=== PATIENT | female | born 1930 | race Caucasian/White ===

== ENCOUNTER 2018-05-11 17:03 | Inpatient (IN) | payer MEDICARE, OTHER ==
[~2018-05-11] VITALS: Ht 162.6 cm; Wt 68.2 kg
[2018-05-11] MEDS ORDERED: SODIUM CHLORIDE FLUSH 10ML SYR IVF ONE (18:00)
[2018-05-11] MEDS ORDERED: ASPIRIN 81 MG TABLET CHEW PO ONE (18:00)
[2018-05-11 18:06] LABS: BASOPHILS # (AUTO) 0.04 x10^3/uL (0-0.1); BASOPHILS % (AUTO) 0 % (0-1); EOSINOPHILS # (AUTO) 0.18 x10^3/uL (0-0.4); EOSINOPHILS % (AUTO) 2 % (1-7); LYMPHOCYTES # (AUTO) 1.31 x10^3/uL (1-3.4); LYMPHOCYTES % (AUTO) 11 % (22-44); MD NO; MEAN CORPUSCULAR HEMOGLOBIN 32.6 pg (27.0-34.8); MEAN CORPUSCULAR VOLUME 98.8 fL (80-100); MEAN PLATELET VOLUME 7.4 fL (7.4-10.4); MONOCYTES # (AUTO) 0.66 x10^3/uL (0.2-0.8); MONOCYTES % (AUTO) 6 % (2-9); NEUTROPHILS # (AUTO) 9.51 x10^3/uL (1.8-6.8); NEUTROPHILS % (AUTO) 81 % (42-75); PLATELET COUNT 377 x10^3/uL (130-400); RED BLOOD COUNT 4.24 x10^6/uL (3.82-5.3); RED CELL DISTRIBUTION WIDTH 14.8 % (9.6-15.2)
[2018-05-11 18:11] LABS: INTERNATIONAL NORMALIZED RATIO 1.05 (0.93-1.1); PROTHROMBIN TIME 10.8 Seconds (9.6-11.5)
[2018-05-11 18:14] LABS: ALANINE AMINOTRANSFERASE 23 U/L (12-78); ALBUMIN 3.2 g/dL (3.4-5.0); ANION GAP 8 mmol/L (5-15); CALCIUM 9.2 mg/dL (8.5-10.1); CHLORIDE 107 mmol/L (98-107); CREATININE 0.95 mg/dL (0.55-1.02)
[2018-05-11 18:19] LABS: ALKALINE PHOSPHATASE 73 U/L (45-117); BILIRUBIN,TOTAL 0.5 mg/dL (0.2-1.0); TOTAL PROTEIN 6.9 g/dL (6.4-8.2); TROPONIN I < 0.015 ng/mL (0.000-0.045)
[2018-05-11] MEDS ORDERED: ASPIRIN 81 MG TABLET CHEW ONE (18:42)
[2018-05-11 19:16] LABS: MICROSCOPIC AUTO
[2018-05-11 19:17] LABS: CULTURE INDICATED? NO
[2018-05-11] MEDS ORDERED: LEVO50TA PO (21:33)
[2018-05-11] MEDS ORDERED: CHOL500045 PO (21:33)
[2018-05-11] MEDS ORDERED: ATOR40TA PO (21:33)
[2018-05-11] MEDS ORDERED: BIOT25005 PO (21:33)
[2018-05-11] MEDS ORDERED: LISI-170 PO (21:33)
[2018-05-11] MEDS ORDERED: ASPI-496 PO (21:33)
[2018-05-11] MEDS ORDERED: MAGN300C PO (21:33)
[2018-05-11] MEDS ORDERED: ONDANSETRON ODT 4 MG PO PRN (22:00)
[2018-05-11] MEDS ORDERED: BISACODYL 10 MG SUPP PR PRN (22:00)
[2018-05-11] MEDS: BIOTIN MC SCH (22:30)
[2018-05-11] MEDS: SODIUM CHLORIDE 0.9% 1,000 ML IV SCH (22:49)
[2018-05-11] MEDS: ATORVASTATIN 40 MG TABLET PO SCH (22:49)
[2018-05-11] MEDS: HEPARIN 5,000 UNITS/ML, 1ML SQ SCH (22:50)
[2018-05-12] VITALS (8 sets, daily range): BP systolic 123–152; BP diastolic 61–91
[2018-05-12 00:43] LABS: TROPONIN I < 0.015 ng/mL (0.000-0.045)
[2018-05-12] MEDS: ACETAMINOPHEN 325 MG TABLET PO PRN ×4 (03:08→21:26)
[2018-05-12 06:19] LABS: BASOPHILS # (AUTO) 0.03 x10^3/uL (0-0.1); BASOPHILS % (AUTO) 0 % (0-1); EOSINOPHILS # (AUTO) 0.13 x10^3/uL (0-0.4); EOSINOPHILS % (AUTO) 2 % (1-7); LYMPHOCYTES % (AUTO) 23 % (22-44); MD NO; MEAN CORPUSCULAR HEMOGLOBIN 33.5 pg (27.0-34.8); MEAN CORPUSCULAR VOLUME 98.6 fL (80-100); MEAN PLATELET VOLUME 7.4 fL (7.4-10.4); MONOCYTES % (AUTO) 11 % (2-9); NEUTROPHILS # (AUTO) 4.81 x10^3/uL (1.8-6.8); NEUTROPHILS % (AUTO) 64 % (42-75); PLATELET COUNT 332 x10^3/uL (130-400); RED BLOOD COUNT 3.89 x10^6/uL (3.82-5.3); RED CELL DISTRIBUTION WIDTH 14.8 % (9.6-15.2)
[2018-05-12] MEDS: LEVOTHYROXINE 50 MCG TABLET PO SCH (06:19)
[2018-05-12] MEDS: HEPARIN 5,000 UNITS/ML, 1ML SQ SCH ×3 (06:19→23:17)
[2018-05-12 06:25] LABS: ALANINE AMINOTRANSFERASE 20 U/L (12-78); ALBUMIN 2.8 g/dL (3.4-5.0); ANION GAP 6 mmol/L (5-15); CALCIUM 8.6 mg/dL (8.5-10.1); CHLORIDE 111 mmol/L (98-107); CREATININE 0.88 mg/dL (0.55-1.02)
[2018-05-12 06:29] LABS: ALKALINE PHOSPHATASE 60 U/L (45-117); BILIRUBIN,TOTAL 0.7 mg/dL (0.2-1.0); TOTAL PROTEIN 5.9 g/dL (6.4-8.2); TROPONIN I < 0.015 ng/mL (0.000-0.045)
[2018-05-12] MEDS: BIOTIN MC SCH ×3 (06:30→22:30)
[2018-05-12] MEDS: LISINOPRIL 20 MG TABLET PO SCH (08:35)
[2018-05-12] MEDS: MAGNESIUM OXIDE 400 MG TABLET PO SCH (08:35)
[2018-05-12] MEDS: ASPIRIN 81 MG TABLET CHEW PO SCH (08:35)
[2018-05-12] MEDS: SENNA/DOCUSATE TABLET PO SCH (08:35)
[2018-05-12] MEDS: CHOLECALCIFEROL 5,000u TAB PO SCH (08:35)
[2018-05-12] MEDS ORDERED: TEMPLATE NON-FORMULARY MED. (Biotin** 2,500 MG) PO SCH (09:00)
[2018-05-12] MEDS: LIDODERM 5% PATCH TD SCH (11:42)
[2018-05-12] MEDS: SODIUM CHLORIDE 0.9% 1,000 ML IV SCH ×2 (11:42→23:18)
[2018-05-12] MEDS: POLYETHYLENE GLYCOL 17 GM PACKET PO PRN (17:54)
[2018-05-12] MEDS: ATORVASTATIN 40 MG TABLET PO SCH (21:26)
[2018-05-13] VITALS (10 sets, daily range): BP systolic 116–176; BP diastolic 67–114
[2018-05-13] MEDS: ACETAMINOPHEN 325 MG TABLET PO PRN ×2 (03:06→05:47)
[2018-05-13] MEDS: LEVOTHYROXINE 50 MCG TABLET PO SCH (05:47)
[2018-05-13] MEDS: BIOTIN MC SCH ×3 (06:19→21:39)
[2018-05-13] MEDS: HEPARIN 5,000 UNITS/ML, 1ML SQ SCH ×2 (07:29→16:20)
[2018-05-13] MEDS: ASPIRIN 81 MG TABLET CHEW PO SCH (10:08)
[2018-05-13] MEDS: MAGNESIUM OXIDE 400 MG TABLET PO SCH (10:09)
[2018-05-13] MEDS: LISINOPRIL 20 MG TABLET PO SCH (10:11)
[2018-05-13] MEDS: SENNA/DOCUSATE TABLET PO SCH (10:13)
[2018-05-13] MEDS: CHOLECALCIFEROL 5,000u TAB PO SCH (10:14)
[2018-05-13] MEDS: LIDODERM 5% PATCH TD SCH (10:17)
[2018-05-13 10:32] LABS: BASOPHILS # (AUTO) 0.03 x10^3/uL (0-0.1); BASOPHILS % (AUTO) 0 % (0-1); EOSINOPHILS # (AUTO) 0.07 x10^3/uL (0-0.4); EOSINOPHILS % (AUTO) 1 % (1-7); LYMPHOCYTES # (AUTO) 1.26 x10^3/uL (1-3.4); LYMPHOCYTES % (AUTO) 17 % (22-44); MD NO; MEAN CORPUSCULAR HEMOGLOBIN 33.7 pg (27.0-34.8); MEAN CORPUSCULAR VOLUME 98.9 fL (80-100); MEAN PLATELET VOLUME 7.3 fL (7.4-10.4); MONOCYTES # (AUTO) 0.34 x10^3/uL (0.2-0.8); MONOCYTES % (AUTO) 5 % (2-9); NEUTROPHILS # (AUTO) 5.57 x10^3/uL (1.8-6.8); NEUTROPHILS % (AUTO) 77 % (42-75); PLATELET COUNT 336 x10^3/uL (130-400); RED BLOOD COUNT 4.08 x10^6/uL (3.82-5.3); RED CELL DISTRIBUTION WIDTH 14.9 % (9.6-15.2)
[2018-05-13 10:46] LABS: ALANINE AMINOTRANSFERASE 21 U/L (12-78); ALBUMIN 3.1 g/dL (3.4-5.0); ANION GAP 8 mmol/L (5-15); CHLORIDE 108 mmol/L (98-107); CREATININE 0.78 mg/dL (0.55-1.02)
[2018-05-13 10:48] LABS: ALKALINE PHOSPHATASE 69 U/L (45-117); BILIRUBIN,TOTAL 0.8 mg/dL (0.2-1.0); TOTAL PROTEIN 6.7 g/dL (6.4-8.2)
[2018-05-13] MEDS: ATORVASTATIN 40 MG TABLET PO SCH (19:55)
[2018-05-13] MEDS: POLYETHYLENE GLYCOL 17 GM PACKET PO PRN (19:58)
[2018-05-13 22:54] LABS: FREE T4 (FREE THYROXINE) 1.03 ng/dL (0.76-1.46); THYROID STIMULATING HORMONE 12.1 mIU/L (0.358-3.740)
[2018-05-14 00:45] VITALS: BP 141/76
[2018-05-14] MEDS: HEPARIN 5,000 UNITS/ML, 1ML SQ SCH ×3 (00:59→17:00)
[2018-05-14] MEDS: BIOTIN MC SCH (05:37)
[2018-05-14] MEDS: LEVOTHYROXINE 50 MCG TABLET PO SCH (05:39)
[2018-05-14 06:47] VITALS: BP 131/83
[2018-05-14] MEDS ORDERED: METOPROLOL TARTRATE 25 MG TABLET PO SCH (09:00)
[2018-05-14] MEDS: MAGNESIUM OXIDE 400 MG TABLET PO SCH (09:05)
[2018-05-14] MEDS: SENNA/DOCUSATE TABLET PO SCH (09:05)
[2018-05-14] MEDS: POLYETHYLENE GLYCOL 17 GM PACKET PO PRN (09:06)
[2018-05-14] MEDS: ASPIRIN 325 MG TABLET PO SCH (09:07)
[2018-05-14] MEDS: CHOLECALCIFEROL 5,000u TAB PO SCH (09:09)
[2018-05-14] MEDS: LIDODERM 5% PATCH TD SCH (09:09)
[2018-05-14] MEDS: LISINOPRIL 20 MG TABLET PO SCH (09:09)
[2018-05-14] MEDS ORDERED: METOPROLOL TARTRATE 25 MG TABLET PO ONE (12:30)
[2018-05-14 14:13] VITALS: BP 115/76
[2018-05-14] MEDS: METOPROLOL TARTRATE 25 MG TABLET PO SCH ×2 (15:33→21:27)
[2018-05-14 21:07] VITALS: BP 124/73
[2018-05-14] MEDS: ATORVASTATIN 40 MG TABLET PO SCH (21:27)
[2018-05-15] MEDS: HEPARIN 5,000 UNITS/ML, 1ML SQ SCH ×3 (01:08→18:06)
[2018-05-15] MEDS: METOPROLOL TARTRATE 25 MG TABLET PO SCH ×4 (02:15→21:40)
[2018-05-15] MEDS: ACETAMINOPHEN 325 MG TABLET PO PRN (02:16)
[2018-05-15 02:19] VITALS: BP 140/76
[2018-05-15 05:20] LABS: BASOPHILS # (AUTO) 0.02 x10^3/uL (0-0.1); BASOPHILS % (AUTO) 0 % (0-1); EOSINOPHILS # (AUTO) 0.06 x10^3/uL (0-0.4); EOSINOPHILS % (AUTO) 1 % (1-7); LYMPHOCYTES # (AUTO) 1.81 x10^3/uL (1-3.4); LYMPHOCYTES % (AUTO) 19 % (22-44); MD NO; MEAN CORPUSCULAR HEMOGLOBIN 32.9 pg (27.0-34.8); MEAN CORPUSCULAR HGB CONC 33.4 g/dL (32.4-35.8); MEAN CORPUSCULAR VOLUME 98.5 fL (80-100); MEAN PLATELET VOLUME 7.8 fL (7.4-10.4); MONOCYTES # (AUTO) 0.97 x10^3/uL (0.2-0.8); MONOCYTES % (AUTO) 10 % (2-9); NEUTROPHILS # (AUTO) 6.53 x10^3/uL (1.8-6.8); NEUTROPHILS % (AUTO) 70 % (42-75); PLATELET COUNT 322 x10^3/uL (130-400); RED BLOOD COUNT 4.23 x10^6/uL (3.82-5.3); RED CELL DISTRIBUTION WIDTH 14.9 % (9.6-15.2)
[2018-05-15 05:25] LABS: ANION GAP 8 mmol/L (5-15); CALCIUM 8.9 mg/dL (8.5-10.1); CHLORIDE 105 mmol/L (98-107)
[2018-05-15 05:28] LABS: CREATININE 0.64 mg/dL (0.55-1.02)
[2018-05-15] MEDS: LEVOTHYROXINE 50 MCG TABLET PO SCH (05:40)
[2018-05-15 06:48] VITALS: BP 144/89
[2018-05-15] MEDS: ASPIRIN 325 MG TABLET PO SCH (08:37)
[2018-05-15] MEDS: MAGNESIUM OXIDE 400 MG TABLET PO SCH (08:38)
[2018-05-15] MEDS: LIDODERM 5% PATCH TD SCH (08:38)
[2018-05-15] MEDS: CHOLECALCIFEROL 5,000u TAB PO SCH (08:38)
[2018-05-15] MEDS: LISINOPRIL 20 MG TABLET PO SCH (08:38)
[2018-05-15] MEDS: SENNA/DOCUSATE TABLET PO SCH (08:39)
[2018-05-15] MEDS ORDERED: ATOR10TA9 PO (10:54)
[2018-05-15] MEDS ORDERED: ESTR0.3T PO (10:54)
[2018-05-15] MEDS ORDERED: RIVA15TA PO (11:43)
[2018-05-15] MEDS ORDERED: METO50TA6 PO (11:43)
[2018-05-15 12:54] VITALS: BP 105/73
[2018-05-15 18:55] VITALS: BP 120/84
[2018-05-15] MEDS: ATORVASTATIN 40 MG TABLET PO SCH (21:40)
[2018-05-16 01:02] VITALS: BP 117/78
[2018-05-16] MEDS: HEPARIN 5,000 UNITS/ML, 1ML SQ SCH ×2 (02:06→09:18)
[2018-05-16] MEDS: ACETAMINOPHEN 325 MG TABLET PO PRN (03:07)
[2018-05-16] MEDS: METOPROLOL TARTRATE 25 MG TABLET PO SCH (03:08)
[2018-05-16] MEDS: LEVOTHYROXINE 50 MCG TABLET PO SCH (05:08)
[2018-05-16 06:42] VITALS: BP 111/75
[2018-05-16] MEDS: SENNA/DOCUSATE TABLET PO SCH (09:00)
[2018-05-16] MEDS ORDERED: METOPROLOL TARTRATE 50 MG TABLET PO SCH (09:00)
[2018-05-16] MEDS: MAGNESIUM OXIDE 400 MG TABLET PO SCH (09:21)
[2018-05-16] MEDS: CHOLECALCIFEROL 5,000u TAB PO SCH (09:21)
[2018-05-16] MEDS: LISINOPRIL 20 MG TABLET PO SCH (09:22)
[2018-05-16] MEDS: ASPIRIN 325 MG TABLET PO SCH (09:22)
[2018-05-16] MEDS: LIDODERM 5% PATCH TD SCH (09:55)
[2018-05-16] MEDS ORDERED: RIVA20TA PO (11:03)
[2018-05-16 12:41] VITALS: BP 107/72
[2018-05-16] MEDS: POLYETHYLENE GLYCOL 17 GM PACKET PO PRN (12:47)
== END 2018-05-16 14:02 | DRG 74 ==
LOC: ED 20:04 → EDIP 20:57 → 4WST 22:04
PROVIDERS: ADMIT Hospitalist; ATTEND Hospitalist
PROC: 0T9B70Z Drainage of Bladder with Drainage Device, Via Natural or Artificial Opening (ICD-10-PCS; principal; 2018-05-11)
DX: G90.8 Other disorders of autonomic nervous system (principal); E44.1 Mild protein-calorie malnutrition; D68.69 Other thrombophilia; I48.91 Unspecified atrial fibrillation; R55 Syncope and collapse; D72.829 Elevated white blood cell count, unspecified; E03.9 Hypothyroidism, unspecified; E78.5 Hyperlipidemia, unspecified; H91.90 Unspecified hearing loss, unspecified ear; W18.39XA Other fall on same level, initial encounter; I10 Essential (primary) hypertension; I34.0 Nonrheumatic mitral (valve) insufficiency; M51.36 Other intervertebral disc degeneration, lumbar region; S70.01XA Contusion of right hip, initial encounter; Z79.01 Long term (current) use of anticoagulants; Z90.710 Acquired absence of both cervix and uterus; Y93.89 Activity, other specified; Y92.89 Other specified places as the place of occurrence of the external cause; Z98.42 Cataract extraction status, left eye; Z98.41 Cataract extraction status, right eye; Z68.25 Body mass index [BMI] 25.0-25.9, adult
CPT/HCPCS: 36415; 70450; 71045; 72192; 80048; 80053; 81001; 83735; 84100; 84439; 84443; 84484; 85025; 85610; 93005; 93306; 93880; 99285; G0378; J1644; J7030